=== PATIENT | male | born 1985 | race African-American/Black ===

== ENCOUNTER 2016-05-19 11:28 | Emergency (ER) | payer MEDICAID ==
[~2016-05-19] VITALS: Ht 172.7 cm; Wt 95.3 kg
[2016-05-19 12:27] VITALS: BP 144/97
== END 2016-05-19 15:44 | disposition left against medical advice (07) ==
LOC: ER 11:29
DX: R11.2 Nausea with vomiting, unspecified (principal); Z53.21 Procedure and treatment not carried out due to patient leaving prior to being seen by health care provider

== ENCOUNTER 2016-05-21 11:58 | Emergency (ER) | payer MEDICAID ==
[~2016-05-21] VITALS: Ht 172.7 cm; Wt 93.0 kg
[2016-05-21 12:29] VITALS: BP 136/71
[2016-05-21 13:49] LABS: Basophils # (auto) 0 uL; Basophils % (auto) 0.3 % (0.0-2.0); Eosinophils # (auto) 0.1 uL; Eosinophils % (auto) 2.5 % (0.0-7.0); Hematocrit 44.1 % (41.0-53.0); Lymphocytes # (auto) 1.2 uL; Lymphocytes % (auto) 23.9 % (10.0-50.0); Mean Corpuscular Hemoglobin 27.2 pg (28.0-32.0); Mean Corpuscular Hgb Conc. 31.7 g/dL (32.0-36.0); Mean Corpuscular Volume 85.9 fL (80.0-100.0); Mean Platelet Volume 7.7 fL (7.4-10.4); Monocytes # (auto) 0.6 uL; Monocytes % (auto) 12.3 % (0.0-12.0); Neutrophils # (auto) 3.2 uL; Platelet Count (auto) 289 10^3/uL (140-450); Red Cell Distribution Width 13.9 % (11.6-16.0); White Blood Cell 5.2 10^3/uL (4.4-10.8)
[2016-05-21 14:14] LABS: Albumin 4.1 g/dL (3.4-5.0); BUN/Creatinine Ratio 15.8; Potassium 3.8 mmol/L (3.5-5.1)
[2016-05-21 14:44] LABS: Bilirubin, Total 0.4 mg/dL (0.2-1.0); Total Protein 7.6 g/dL (6.4-8.2)
== END 2016-05-22 01:48 | disposition left against medical advice (07) ==
LOC: ER 11:59
DX: R10.10 Upper abdominal pain, unspecified (principal); Z53.21 Procedure and treatment not carried out due to patient leaving prior to being seen by health care provider
CPT/HCPCS: 36415; 80053; 85025; 93005

== ENCOUNTER 2017-02-17 11:53 | Inpatient (IN) | payer MEDICAID ==
[~2017-02-17] VITALS: Ht 175.3 cm; Wt 103.0 kg
[2017-02-17] MEDS ORDERED: ENOXAPARIN SOD 100 MG/1 ML SYRINGE SC ONE (13:30)
[2017-02-17 14:13] LABS: Basophils # (auto) 0 uL; Basophils % (auto) 0.6 % (0.0-2.0); Eosinophils # (auto) 0 uL; Eosinophils % (auto) 1.1 % (0.0-7.0); Hematocrit 45.6 % (41.0-53.0); Hemoglobin 15.2 g/dL (13.5-17.5); Lymphocytes # (auto) 1.6 uL; Lymphocytes % (auto) 41.3 % (10.0-50.0); Mean Corpuscular Hemoglobin 28.8 pg (28.0-32.0); Mean Corpuscular Hgb Conc. 33.4 g/dL (32.0-36.0); Mean Corpuscular Volume 86.4 fL (80.0-100.0); Monocytes # (auto) 0.4 uL; Monocytes % (auto) 10.8 % (0.0-12.0); Neutrophils # (auto) 1.8 uL; Neutrophils % (auto) 46.2 % (37.0-80.0); Nucleated Red Blood Cells % 0.3 %; Platelet Count (auto) 259 10^3/uL (140-450); Red Blood Cells 5.28 10^6/uL (4.5-5.90); Red Cell Distribution Width 14.1 % (11.8-14.3); White Blood Cell 3.9 10^3/uL (4.4-10.8)
[2017-02-17 14:29] LABS: INR 1.01 (0.9-1.15); Partial Thromboplastin Time 23.8 sec (22.64-33.71)
[2017-02-17 14:33] LABS: Albumin 4.5 g/dL (3.4-5.0); BUN/Creatinine Ratio 11.8; Bilirubin, Total 0.4 mg/dL (0.2-1.0); Calcium 9.7 mg/dL (8.5-10.1); Potassium 3.8 mmol/L (3.5-5.1); Total Protein 8.7 g/dL (6.4-8.2)
[2017-02-17] MEDS: SODIUM CHLORIDE 0.9% 1,000 ML IV SCH (14:51)
[2017-02-17] MEDS ORDERED: WARFARIN SODIUM 5 MG TAB PO ONE (17:00)
[2017-02-17 17:28] VITALS: BP 140/82
[2017-02-17 17:52] VITALS: BP 140/82
[2017-02-17 22:00] VITALS: BP 136/77
[2017-02-17] MEDS: FAMOTIDINE 20 MG TAB PO SCH (22:53)
[2017-02-17] MEDS: APIXABAN 5 MG TAB PO SCH (22:54)
[2017-02-17] MEDS: ENOXAPARIN SOD 100 MG/1 ML SYRINGE SC SCH (22:54)
[2017-02-18] MEDS: SODIUM CHLORIDE 0.9% 1,000 ML IV SCH ×2 (04:45→17:49)
[2017-02-18 05:00] VITALS: BP 117/73
[2017-02-18 07:43] LABS: Hematocrit 41.2 % (41.0-53.0); Hemoglobin 13.9 g/dL (13.5-17.5); Mean Corpuscular Hgb Conc. 33.7 g/dL (32.0-36.0); Mean Corpuscular Volume 86.1 fL (80.0-100.0); Platelet Count (auto) 217 10^3/uL (140-450); Red Blood Cells 4.79 10^6/uL (4.5-5.90); Red Cell Distribution Width 13.8 % (11.8-14.3); White Blood Cell 3.9 10^3/uL (4.4-10.8)
[2017-02-18 07:46] LABS: Calcium 9.1 mg/dL (8.5-10.1); Potassium 3.9 mmol/L (3.5-5.1)
[2017-02-18 07:48] LABS: BUN/Creatinine Ratio 13.3
[2017-02-18 08:12] LABS: Band Neutrophils % (manual) 0; Basophils % (manual) 0 (0.0-2.0); Blast Cells 0; Eosinophils % (manual) 0 (0-7); Metamyelocytes % 0; Myelocytes % 0; Promyelocytes % 0; Reactive Lymphocytes 0
[2017-02-18 08:39] LABS: Lymphocytes % (manual) 58 (10.0-50.0); Monocytes % (manual) 10 (0-12)
[2017-02-18] MEDS: APIXABAN 5 MG TAB PO SCH ×2 (08:57→22:17)
[2017-02-18] MEDS: FAMOTIDINE 20 MG TAB PO SCH ×2 (08:58→22:17)
[2017-02-18] MEDS: ENOXAPARIN SOD 100 MG/1 ML SYRINGE SC SCH ×2 (08:58→22:18)
[2017-02-18 09:00] VITALS: BP 135/68
[2017-02-18] MEDS ORDERED: MORPHINE SULFATE 10 MG/ML INJ 1ML SDV IV PRN (17:00)
[2017-02-18] MEDS ORDERED: ONDANSETRON HCL 4 MG/2 ML VIAL IV PRN (17:00)
[2017-02-18] MEDS: HYDROcodone-ACET 5/325MG TAB PO PRN (17:01)
[2017-02-18 17:11] VITALS: BP 151/98
[2017-02-18 22:00] VITALS: BP 125/68
[2017-02-19 05:00] VITALS: BP 118/75
[2017-02-19] MEDS: HYDROcodone-ACET 5/325MG TAB PO PRN ×4 (06:38→22:59)
[2017-02-19] MEDS: SODIUM CHLORIDE 0.9% 1,000 ML IV SCH ×2 (06:41→10:46)
[2017-02-19 09:00] VITALS: BP 125/74
[2017-02-19] MEDS: APIXABAN 5 MG TAB PO SCH ×2 (10:44→21:23)
[2017-02-19] MEDS: FAMOTIDINE 20 MG TAB PO SCH ×2 (10:44→21:25)
[2017-02-19] MEDS: ENOXAPARIN SOD 100 MG/1 ML SYRINGE SC SCH ×2 (10:44→21:25)
[2017-02-19] MEDS ORDERED: ceFAZolin 1GM/50ML 50 ML IV ONE (11:15)
[2017-02-19 17:00] VITALS: BP 126/81
[2017-02-19] MEDS: ceFAZolin 1GM/50ML 50 ML IV SCH (17:46)
[2017-02-19 22:22] VITALS: BP 126/84
[2017-02-19] MEDS ORDERED: IOHEXOL 350 MG/ML 100ML IJ ONE (22:52)
[2017-02-20] MEDS: ceFAZolin 1GM/50ML 50 ML IV SCH ×2 (02:24→10:02)
[2017-02-20 04:47] VITALS: BP 122/76
[2017-02-20 08:00] VITALS: BP 123/77
[2017-02-20] MEDS: HYDROcodone-ACET 5/325MG TAB PO PRN ×2 (08:14→15:21)
[2017-02-20 09:00] VITALS: BP 123/77
[2017-02-20] MEDS: ENOXAPARIN SOD 100 MG/1 ML SYRINGE SC SCH (10:02)
[2017-02-20] MEDS: FAMOTIDINE 20 MG TAB PO SCH (10:03)
[2017-02-20] MEDS: APIXABAN 5 MG TAB PO SCH (10:03)
[2017-02-20] MEDS: SODIUM CHLORIDE 0.9% 1,000 ML IV SCH (10:12)
[2017-02-20 13:00] VITALS: BP 116/70
[2017-02-20 14:37] VITALS: BP 116/70
== END 2017-02-20 15:33 | disposition home or self-care (01) | DRG 197 ==
LOC: ER 11:53 → OVERFLOW 11:54 → WEST WING 16:58
PROVIDERS: ADMIT Internal Medicine; ATTEND Internal Medicine
DX: I82.402 Acute embolism and thrombosis of unspecified deep veins of left lower extremity (principal); L03.116 Cellulitis of left lower limb; E66.9 Obesity, unspecified; Z72.89 Other problems related to lifestyle; Z68.33 Body mass index [BMI] 33.0-33.9, adult
CPT/HCPCS: 36415; 71275; 80048; 80053; 81241; 83090; 85007; 85025; 85027; 85301; 85302; 85305; 85306; 85379; 85610; 85730; 93005; 93926; 93971; J0690

== ENCOUNTER 2017-02-23 11:18 | Emergency (ER) | payer MEDICAID ==
[~2017-02-23] VITALS: Ht 175.3 cm; Wt 95.3 kg
[2017-02-23 13:21] LABS: Basophils # (auto) 0.1 uL; Basophils % (auto) 1.2 % (0.0-2.0); Eosinophils # (auto) 0.1 uL; Eosinophils % (auto) 1.1 % (0.0-7.0); Hematocrit 42.7 % (41.0-53.0); Hemoglobin 14.5 g/dL (13.5-17.5); Lymphocytes % (auto) 43.5 % (10.0-50.0); Mean Corpuscular Hemoglobin 29.3 pg (28.0-32.0); Mean Corpuscular Hgb Conc. 33.9 g/dL (32.0-36.0); Mean Corpuscular Volume 86.4 fL (80.0-100.0); Monocytes # (auto) 0.4 uL; Monocytes % (auto) 9.2 % (0.0-12.0); Nucleated Red Blood Cells % 0.1 %; Platelet Count (auto) 243 10^3/uL (140-450); Red Blood Cells 4.95 10^6/uL (4.5-5.90); White Blood Cell 4.5 10^3/uL (4.4-10.8)
[2017-02-23 13:27] LABS: Alanine Aminotransferase 125 U/L (16-61); Albumin 4.4 g/dL (3.4-5.0); Alkaline Phosphatase 52 U/L (45-117); Anion Gap 8 (5-15); Aspartate Aminotransferase 65 U/L (15-37); BUN/Creatinine Ratio 10.5; Bilirubin, Total 0.4 mg/dL (0.2-1.0); Blood Urea Nitrogen 9 mg/dL (7-18); Calcium 9.6 mg/dL (8.5-10.1); Carbon Dioxide 26 mmol/L (21-32); Chloride 102 mmol/L (98-107); GFR African American 132 mL/min; GFR Non-African American 109 mL/min; Glucose 86 mg/dL (74-106); Potassium 4.8 mmol/L (3.5-5.1); Sodium 136 mmol/L (136-145); Total Protein 8.9 g/dL (6.4-8.2)
[2017-02-23 13:34] LABS: Prothrombin Time 10.9 sec (9.37-12.3)
[2017-02-23] MEDS ORDERED: IOHEXOL 350 MG/ML 100ML IJ ONE (14:18)
[2017-02-23 15:08] VITALS: BP 133/76
== END 2017-02-23 15:26 | disposition home or self-care (01) ==
LOC: ER 11:18
DX: R42 Dizziness and giddiness (principal); K76.0 Fatty (change of) liver, not elsewhere classified; Z86.718 Personal history of other venous thrombosis and embolism
CPT/HCPCS: 36415; 76705; 80053; 83735; 84484; 85025; 85379; 85610; 93005; 94761

== ENCOUNTER 2017-03-08 06:08 | Emergency (ER) | payer MEDICAID ==
[~2017-03-08] VITALS: Ht 172.7 cm; Wt 99.8 kg
[2017-03-08 07:22] LABS: Basophils # (auto) 0.1 uL; Basophils % (auto) 1.2 % (0.0-2.0); Eosinophils # (auto) 0.1 uL; Eosinophils % (auto) 1.3 % (0.0-7.0); Hematocrit 40.5 % (41.0-53.0); Hemoglobin 13.5 g/dL (13.5-17.5); Lymphocytes # (auto) 2.1 uL; Lymphocytes % (auto) 51.5 % (10.0-50.0); Mean Corpuscular Hemoglobin 28.8 pg (28.0-32.0); Mean Corpuscular Hgb Conc. 33.3 g/dL (32.0-36.0); Mean Corpuscular Volume 86.5 fL (80.0-100.0); Mean Platelet Volume 7.5 fL (6.9-10.8); Monocytes # (auto) 0.4 uL; Monocytes % (auto) 9.4 % (0.0-12.0); Neutrophils # (auto) 1.5 uL; Neutrophils % (auto) 36.6 % (37.0-80.0); Nucleated Red Blood Cells % 0.2 %; Platelet Count (auto) 275 10^3/uL (140-450); Red Cell Distribution Width 13.8 % (11.8-14.3); White Blood Cell 4.1 10^3/uL (4.4-10.8)
[2017-03-08 07:36] LABS: INR 1.05 (0.9-1.15); Partial Thromboplastin Time 27.1 sec (22.64-33.71); Prothrombin Time 11.5 sec (9.37-12.3)
[2017-03-08 07:52] LABS: Albumin 4.2 g/dL (3.4-5.0); Alkaline Phosphatase 56 U/L (45-117); Anion Gap 6 (5-15); Aspartate Aminotransferase 43 U/L (15-37); BUN/Creatinine Ratio 9.9; Bilirubin, Total 0.2 mg/dL (0.2-1.0); Blood Urea Nitrogen 9 mg/dL (7-18); Calcium 9.3 mg/dL (8.5-10.1); Carbon Dioxide 28 mmol/L (21-32); Chloride 103 mmol/L (98-107); GFR African American 123 mL/min; GFR Non-African American 102 mL/min; Glucose 95 mg/dL (74-106); Potassium 3.9 mmol/L (3.5-5.1); Sodium 137 mmol/L (136-145)
[2017-03-08] MEDS ORDERED: IOHEXOL 350 MG/ML 100ML IJ ONE (08:59)
[2017-03-08] MEDS ORDERED: PATIENTS OWN MEDICATION PO STA ×2 (09:56)
[2017-03-08] MEDS ORDERED: APIXABAN 5 MG TAB PO ONE (10:30)
[2017-03-08 11:03] VITALS: BP 116/70
== END 2017-03-08 11:15 | disposition home or self-care (01) ==
LOC: ER 06:08
DX: R07.89 Other chest pain (principal); I82.509 Chronic embolism and thrombosis of unspecified deep veins of unspecified lower extremity
CPT/HCPCS: 36415; 71010; 71275; 80053; 83735; 84484; 85025; 85610; 85730; 93005; 94761; 99285; Q9967

== ENCOUNTER 2017-04-05 11:13 | Emergency (ER) | payer MEDICAID ==
[~2017-04-05] VITALS: Ht 175.3 cm; Wt 99.8 kg
[2017-04-05 14:25] VITALS: BP 136/86
== END 2017-04-05 11:40 | disposition left against medical advice (07) ==
LOC: ER 11:13
DX: M79.605 Pain in left leg (principal); Z53.21 Procedure and treatment not carried out due to patient leaving prior to being seen by health care provider
CPT/HCPCS: 93971

== ENCOUNTER 2017-04-11 23:40 | Emergency (ER) | payer MEDICAID | END 2017-04-12 | disposition left against medical advice (07) | LOC: EDBD 23:40 → ER 23:44 | DX: R51 Headache (principal); Z53.21 Procedure and treatment not carried out due to patient leaving prior to being seen by health care provider ==

== ENCOUNTER 2017-04-21 05:02 | Emergency (ER) | payer MEDICAID ==
[~2017-04-21] VITALS: Ht 175.3 cm; Wt 99.8 kg
[2017-04-21 06:52] LABS: Basophils # (auto) 0 uL; Basophils % (auto) 0.8 % (0.0-2.0); Eosinophils # (auto) 0 uL; Eosinophils % (auto) 1.4 % (0.0-7.0); Hematocrit 43.7 % (41.0-53.0); Hemoglobin 14.6 g/dL (13.5-17.5); Lymphocytes # (auto) 1.8 uL; Lymphocytes % (auto) 50.6 % (10.0-50.0); Mean Corpuscular Hemoglobin 28.6 pg (28.0-32.0); Mean Corpuscular Hgb Conc. 33.4 g/dL (32.0-36.0); Mean Corpuscular Volume 85.5 fL (80.0-100.0); Monocytes # (auto) 0.4 uL; Monocytes % (auto) 10.4 % (0.0-12.0); Neutrophils # (auto) 1.3 uL; Neutrophils % (auto) 36.8 % (37.0-80.0); Nucleated Red Blood Cells % 0.2 %; Platelet Count (auto) 289 10^3/uL (140-450); Red Blood Cells 5.11 10^6/uL (4.5-5.90); Red Cell Distribution Width 13.8 % (11.8-14.3); White Blood Cell 3.5 10^3/uL (4.4-10.8)
[2017-04-21 07:07] LABS: INR 1.1 (0.9-1.15); Partial Thromboplastin Time 29.2 sec (22.64-33.71)
[2017-04-21 07:12] LABS: Albumin 4.5 g/dL (3.4-5.0); BUN/Creatinine Ratio 9.8; Calcium 9.6 mg/dL (8.5-10.1)
[2017-04-21 07:59] LABS: Bilirubin, Total 0.2 mg/dL (0.2-1.0); Total Protein 8.6 g/dL (6.4-8.2)
[2017-04-21 11:09] VITALS: BP 124/84
== END 2017-04-21 11:35 | disposition home or self-care (01) ==
LOC: ER 05:03
DX: J01.00 Acute maxillary sinusitis, unspecified (principal)
CPT/HCPCS: 36415; 70450; 80053; 85025; 85610; 85730

== ENCOUNTER 2017-05-06 04:18 | Emergency (ER) | payer MEDICAID ==
[~2017-05-06] VITALS: Ht 175.3 cm; Wt 97.5 kg
[2017-05-06 04:56] LABS: Hematocrit 42.1 % (41.0-53.0); Hemoglobin 13.8 g/dL (13.5-17.5); Mean Corpuscular Hemoglobin 28.5 pg (28.0-32.0); Mean Corpuscular Hgb Conc. 32.7 g/dL (32.0-36.0); Mean Corpuscular Volume 86.9 fL (80.0-100.0); Platelet Count (auto) 270 10^3/uL (140-450); Red Blood Cells 4.85 10^6/uL (4.5-5.90); Red Cell Distribution Width 13.8 % (11.8-14.3); White Blood Cell 4.3 10^3/uL (4.4-10.8)
[2017-05-06 04:58] LABS: Band Neutrophils % (manual) 0; Basophils % (manual) 0 (0.0-2.0); Blast Cells 0; Eosinophils % (manual) 0 (0-7); Metamyelocytes % 0; Myelocytes % 0; Promyelocytes % 0; Reactive Lymphocytes 0
[2017-05-06 05:11] LABS: INR 1.1 (0.9-1.15); Partial Thromboplastin Time 33.8 sec (22.64-33.71)
[2017-05-06 05:18] LABS: Albumin 4.4 g/dL (3.4-5.0); BUN/Creatinine Ratio 11.1; Bilirubin, Total 0.2 mg/dL (0.2-1.0); Calcium 9.4 mg/dL (8.5-10.1); Potassium 3.8 mmol/L (3.5-5.1); Total Protein 7.8 g/dL (6.4-8.2)
[2017-05-06 06:00] LABS: Lymphocytes % (manual) 62 (10.0-50.0); Monocytes % (manual) 11 (0-12)
[2017-05-06] MEDS ORDERED: SODIUM CHLORIDE 0.9% 1,000 ML IV ONE (07:26)
[2017-05-06] MEDS ORDERED: METOCLOPRAMIDE HCL 5MG/ml INJ 2ml VIAL IV ONE (07:30)
[2017-05-06] MEDS ORDERED: KETOROLAC TROMETH 30 MG/ML 1ML VIAL IV ONE (07:30)
[2017-05-06 10:38] VITALS: BP 131/74
[2017-05-06 10:45] LABS: Urine Bacteria NONE SEEN /hpf (None Seen); Urine Blood Negative /uL (Negative); Urine Hyaline Cast FEW /lpf (0 - 2); Urine Specific Gravity 1.009 (1.001-1.035); Urine WBC 1 /hpf (0 - 3)
== END 2017-05-06 11:18 | disposition home or self-care (01) ==
LOC: ER 04:20
DX: R07.89 Other chest pain (principal); I10 Essential (primary) hypertension; Z86.718 Personal history of other venous thrombosis and embolism
CPT/HCPCS: 36415; 71045; 80053; 81001; 83735; 83880; 84443; 84484; 85007; 85027; 85379; 85610; 85730; 94761; 96361; 96374; 96375; 99285; J1885; J2765; 93005

== ENCOUNTER 2017-07-18 17:28 | Emergency (ER) | payer MEDICAID ==
[~2017-07-18] VITALS: Ht 172.7 cm; Wt 97.5 kg
[2017-07-18 18:43] LABS: Basophils # (auto) 0 uL; Basophils % (auto) 0.5 % (0.0-2.0); Eosinophils # (auto) 0 uL; Eosinophils % (auto) 0.7 % (0.0-7.0); Hematocrit 41.3 % (41.0-53.0); Hemoglobin 13.8 g/dL (13.5-17.5); Lymphocytes # (auto) 1.7 uL; Lymphocytes % (auto) 46.7 % (10.0-50.0); Mean Corpuscular Hemoglobin 28.7 pg (28.0-32.0); Mean Corpuscular Hgb Conc. 33.5 g/dL (32.0-36.0); Mean Corpuscular Volume 85.8 fL (80.0-100.0); Monocytes # (auto) 0.4 uL; Monocytes % (auto) 11.3 % (0.0-12.0); Neutrophils # (auto) 1.5 uL; Neutrophils % (auto) 40.8 % (37.0-80.0); Nucleated Red Blood Cells % 0.2 %; Platelet Count (auto) 244 10^3/uL (140-450); Red Blood Cells 4.82 10^6/uL (4.5-5.90); Red Cell Distribution Width 14.3 % (11.8-14.3); White Blood Cell 3.6 10^3/uL (4.4-10.8)
[2017-07-18 19:12] LABS: Alanine Aminotransferase 59 U/L (16-61); Albumin 4.2 g/dL (3.4-5.0); Alkaline Phosphatase 46 U/L (45-117); Anion Gap 5 (5-15); Aspartate Aminotransferase 30 U/L (15-37); BUN/Creatinine Ratio 10.6; Bilirubin, Total 0.2 mg/dL (0.2-1.0); Blood Urea Nitrogen 10 mg/dL (7-18); Calcium 8.5 mg/dL (8.5-10.1); Carbon Dioxide 29 mmol/L (21-32); Chloride 105 mmol/L (98-107); GFR African American 119 mL/min; GFR Non-African American 98 mL/min; Glucose 103 mg/dL (74-106); Potassium 3.8 mmol/L (3.5-5.1); Sodium 139 mmol/L (136-145); Total Protein 7.9 g/dL (6.4-8.2)
[2017-07-18 20:38] VITALS: BP 126/83
== END 2017-07-18 22:13 | disposition left against medical advice (07) ==
LOC: ER 17:31
DX: J45.901 Unspecified asthma with (acute) exacerbation (principal); I10 Essential (primary) hypertension
CPT/HCPCS: 36415; 71046; 80053; 84484; 85025; 85379; 93005

== ENCOUNTER 2017-09-26 11:36 | Emergency (ER) | payer MEDICAID ==
[~2017-09-26] VITALS: Ht 172.7 cm; Wt 95.3 kg
[2017-09-26 11:45] VITALS: BP 129/85
[2017-09-26 13:30] LABS: Urine Bacteria NONE SEEN /hpf (None Seen); Urine Blood Negative /uL (Negative); Urine Mucus FEW (None Seen); Urine Specific Gravity 1.015 (1.001-1.035); Urine WBC 1 /hpf (0 - 3)
== END 2017-09-26 13:52 | disposition home or self-care (01) ==
LOC: ER 11:36
DX: S39.011A Strain of muscle, fascia and tendon of abdomen, initial encounter (principal); I10 Essential (primary) hypertension; K76.0 Fatty (change of) liver, not elsewhere classified; X50.9XXA Other and unspecified overexertion or strenuous movements or postures, initial encounter; Y93.89 Activity, other specified; Y99.8 Other external cause status; Y92.89 Other specified places as the place of occurrence of the external cause
CPT/HCPCS: 74176; 81001

== ENCOUNTER 2019-08-21 00:41 | Emergency (ER) | payer MEDICAID ==
[~2019-08-21] VITALS: Ht 175.3 cm; Wt 90.7 kg
[2019-08-21 01:36] LABS: Basophils # (auto) 0 10 ^3/uL (0-0.2); Basophils % (auto) 0.8 % (0.0-2.0); Eosinophils # (auto) 0.1 10 ^3/uL (0-0.8); Eosinophils % (auto) 1.2 % (0.0-7.0); Hematocrit 43.1 % (41.0-53.0); Hemoglobin 14.2 g/dL (13.5-17.5); Lymphocytes # (auto) 2.4 10 ^3/uL (0.4-5.4); Lymphocytes % (auto) 49.7 % (10.0-50.0); Mean Corpuscular Hemoglobin 28.3 pg (28.0-32.0); Mean Corpuscular Hgb Conc. 32.9 g/dL (32.0-36.0); Monocytes # (auto) 0.4 10 ^3/uL (0-1.3); Monocytes % (auto) 8.5 % (0.0-12.0); Neutrophils # (auto) 1.9 10 ^3/uL (1.6-8.6); Neutrophils % (auto) 39.8 % (37.0-80.0); Nucleated Red Blood Cells % 0.1 %; Platelet Count (auto) 260 10^3/uL (140-450); Red Blood Cells 5.01 10^6/uL (4.5-5.90); Red Cell Distribution Width 14.1 % (11.8-14.3); White Blood Cell 4.8 10^3/uL (4.4-10.8)
[2019-08-21 02:01] LABS: Albumin 4.1 g/dL (3.4-5.0); Calcium 8.9 mg/dL (8.5-10.1); Potassium 3.7 mmol/L (3.5-5.1)
[2019-08-21 02:04] LABS: BUN/Creatinine Ratio 11.3; Bilirubin, Total 0.2 mg/dL (0.2-1.0); Uric Acid 8.4 mg/dL (3.5-7.2)
[2019-08-21] MEDS ORDERED: IBUPROFEN 800 MG TAB PO ONE (02:30)
[2019-08-21 02:33] VITALS: BP 138/82
[2019-08-21 02:51] LABS: INR 1.07 (0.9-1.15); Partial Thromboplastin Time 24.8 sec (23.64-32.05)
== END 2019-08-21 02:53 | disposition home or self-care (01) ==
LOC: ER 00:42
DX: M72.2 Plantar fascial fibromatosis (principal); M10.9 Gout, unspecified; I10 Essential (primary) hypertension
CPT/HCPCS: 36415; 73630; 80053; 84550; 85025; 85610; 85730

== ENCOUNTER 2022-05-12 20:45 | Emergency (ER) | payer MEDICAID ==
[~2022-05-12] VITALS: Ht 172.7 cm; Wt 104.0 kg
[2022-05-12 21:25] LABS: Basophils # (auto) 0 10 ^3/uL (0-0.2); Basophils % (auto) 0.4 % (0.0-2.0); Eosinophils # (auto) 0.1 10 ^3/uL (0-0.8); Eosinophils % (auto) 1.6 % (0.0-7.0); Hematocrit 40.5 % (41.0-53.0); Hemoglobin 13.4 g/dL (13.5-17.5); Lymphocytes # (auto) 2.2 10 ^3/uL (0.4-5.4); Lymphocytes % (auto) 41.6 % (10.0-50.0); Mean Corpuscular Hemoglobin 28.7 pg (28.0-32.0); Mean Corpuscular Volume 86.9 fL (80.0-100.0); Monocytes # (auto) 0.5 10 ^3/uL (0-1.3); Monocytes % (auto) 10.3 % (0.0-12.0); Neutrophils # (auto) 2.4 10 ^3/uL (1.6-8.6); Neutrophils % (auto) 46.1 % (37.0-80.0); Nucleated Red Blood Cells % 0.2 %; Red Blood Cells 4.66 10^6/uL (4.5-5.90); Red Cell Distribution Width 13.9 % (11.8-14.3); White Blood Cell 5.2 10^3/uL (4.4-10.8)
[2022-05-12 21:39] LABS: Albumin 3.8 g/dL (3.4-5.0); BUN/Creatinine Ratio 7.9; Calcium 9.2 mg/dL (8.5-10.1); Magnesium 1.5 mg/dL (1.6-2.6); Potassium 3.8 mmol/L (3.5-5.1)
[2022-05-12 21:40] LABS: INR 1.02 (0.9-1.15); Partial Thromboplastin Time 25.4 sec (24.6-33.4)
[2022-05-12 21:42] LABS: Bilirubin, Total 0.2 mg/dL (0.2-1.0); Total Protein 7.5 g/dL (6.4-8.2)
[2022-05-13] MEDS ORDERED: CEPH-510 PO (06:00)
[2022-05-13 06:10] VITALS: BP 136/88
== END 2022-05-13 06:19 | disposition home or self-care (01) ==
LOC: ER 20:46
DX: L03.112 Cellulitis of left axilla (principal)
CPT/HCPCS: 36415; 71045; 71250; 80053; 83735; 83880; 84484; 85025; 85610; 85730; 93005

== ENCOUNTER 2023-01-25 13:58 | Emergency (ER) | payer MEDICAID ==
[~2023-01-25] VITALS: Ht 172.7 cm; Wt 100.8 kg
[~2023-01-25 13:58] MED LIST: CEPH-510 PO
[2023-01-25 14:12] VITALS: BP 143/98; PULSE 86; RESP 18; TEMP 97.5; O2SAT 98
[2023-01-25 16:58] LABS: Hemoglobin 13.9 g/dL (13.5-17.5); Mean Corpuscular Hemoglobin 28.7 pg (28.0-32.0); Mean Corpuscular Hgb Conc. 33.1 g/dL (32.0-36.0); Mean Corpuscular Volume 86.8 fL (80.0-100.0); Red Blood Cells 4.84 10^6/uL (4.5-5.90); Red Cell Distribution Width 14.5 % (11.8-14.3); White Blood Cell 4.7 10^3/uL (4.4-10.8)
[2023-01-25 17:04] LABS: Band Neutrophils % (manual) 0; Basophils % (manual) 0 (0.0-2.0); Blast Cells 0; Metamyelocytes % 0; Myelocytes % 0; Promyelocytes % 0; Reactive Lymphocytes 0
[2023-01-25 17:30] LABS: Alanine Aminotransferase 56 U/L (7-40); Albumin 4.7 g/dL (3.2-4.8); Alkaline Phosphatase 46 U/L (46-116); Anion Gap 6 (5-15); Aspartate Aminotransferase 31 U/L (13-40); BUN/Creatinine Ratio 8.3 (10.0-20.0); Blood Urea Nitrogen 8 mg/dL (9-23); Calcium 9.9 mg/dL (8.7-10.4); Carbon Dioxide 28 mmol/L (20-30); Chloride 106 mmol/L (98-107); Glucose 120 mg/dL (74-106); Potassium 3.7 mmol/L (3.5-5.1); Sodium 140 mmol/L (136-145)
[2023-01-25 17:31] LABS: Bilirubin, Total 0.3 mg/dL (0.2-1.0); Total Protein 7.5 g/dL (5.7-8.2)
[2023-01-25 18:05] LABS: Eosinophils % (manual) 1 (0-7); Lymphocytes % (manual) 58 (10.0-50.0); Monocytes % (manual) 9 (0-12); Platelet Estimate Adequate
[2023-01-25 18:40] LABS: Urine Bacteria NONE SEEN /hpf (None Seen); Urine Blood Negative /uL (Negative); Urine Clarity Clear (Clear); Urine Color Yellow (Yellow); Urine Mucus FEW (None Seen); Urine Protein, UAD TRACE (Negative); Urine Specific Gravity 1.029 (1.001-1.035); Urine Urobilinogen Normal (Negative); Urine WBC 6 /hpf (0 - 3); Urine pH 5.5 (5.0-8.0)
[2023-01-25] MEDS ORDERED: NAP500T PO (19:22)
== END 2023-01-25 19:51 | disposition home or self-care (01) ==
LOC: ER 13:58
DX: N50.811 Right testicular pain (principal); N50.812 Left testicular pain; N43.3 Hydrocele, unspecified; Z79.899 Other long term (current) drug therapy
CPT/HCPCS: 36415; 76870; 80053; 81001; 85007; 85027